=== PATIENT | female | born 2000 | race Caucasian/White ===

== ENCOUNTER 2018-04-06 12:53 | Emergency (ER) | payer MEDICAID, OTHER ==
--- OUTSIDE RECORDS SUMMARY | 2018-04-06 12:59 | XMS REPORT ---
:2000 External Reference #:[id number] Author Organization [facility] Address [address] [place] [address] Phone [phone] Care Team Providers Name Role Phone Shashi Gandara MD Primary Care Physician Unavailable Payers Type Date Identification Numbers Payment Provider Subscriber Commercial Effective: Policy Number: [id number] [employer] Judith Malik 2013 Medicaid PayID: [id number] [address] [id number] [place] [address] Problems Description No Information Family History Date Family Member(s) Problem(s) Comments General Non Contributory Father No Current Problems Mother Fibromyalgia Mother Rheumatoid Arthritis Mother Osteoporosis Social History Type Date Description Comments Marital Status Single Lives With Family Occupation Student ETOH Use Denies alcohol use rare social Smoking Patient has never smoked Recreational Drug Use Sporadically uses Marijuana Exercise Type/Frequency Exercises regularly wt lifting Allergies, Adverse Reactions, Alerts Date Description Reaction Status Severity Comments 03/10/2014 NKDA active Medications Medication Date Status Form Strength Qnty SIG Indications Ordering Provider Ibuprofen Active Capsules 200mg as needed Unknown 00 No Active 03/10/20 Hx Unknown Medications 14 - 05/27/20 14 Vital Signs Date Vital Result Comment 03/10/2018 Height 63 inches 5'3" Weight 138.00 lb BP Systolic 115 mmHg BP Diastolic 65 mmHg Body Temperature 98.0 F BMI (Body Mass Index) 24.4 kg/m2 Height Percentile 31 % Weight Percentile 67th 05/27/2014 Height 63 inches 5'3" Weight 120.00 lb Heart Rate 69 /min BMI (Body Mass Index) 21.3 kg/m2 Height Percentile 36 % Weight Percentile 55th 03/29/2014 Height 63 inches 5'3" Weight 119.00 lb Heart Rate 69 /min BP Systolic 111 mmHg BP Diastolic 72 mmHg BMI (Body Mass Index) 21.1 kg/m2 Blood Pressure Percentile 52 % Height Percentile 36 % Weight Percentile 53rd 03/10/2014 Height 64 inches 5'4" Weight 119.00 lb Heart Rate 60 /min BP Systolic 118 mmHg BP Diastolic 60 mmHg BMI (Body Mass Index) 20.4 kg/m2 Blood Pressure Percentile 74 % Height Percentile 51 % Weight Percentile 54th Results Description No Information Procedures Date CPT Code Description Status 03/17/2014 38480 Rad Exam; Foot Comp Completed 03/10/2014 31354 Rad Exam; Ankle Comp Completed Encounters Type Date Location Provider CPT E/M Dx Office Visit 05/27/2014 3:45p [facility] M.D. 37991 845.00 [facility] Office Visit 03/29/2014 1:45p [facility] M.D. 58735 845.00 [facility] Office Visit 03/17/2014 9:15a [facility] M.D. 93926 845.00 [facility] Office Visit 03/10/2014 1:30p [facility] M.D. 45801 845.00 C.[facility] Plan of Care 03/10/2018 - Phyllis Samano NPL60.0 Ingrowing nailComments:[facility] to discuss optionsReferral: Susan Araujo MD, Surgery,GeneralFollow up:Please have pt sign for old records
[2018-04-06 13:06] VITALS: BP 113/65
--- NOTE | 2018-04-06 13:16 | UC ---
Abdominal Pain Female HPI - HPI Summary HPI Summary: Patient presents with complaints of pelvic pain, and lower back pain with associated dysuria, and hematuria. She states this morning she decloped chills and urinary urgency and frequency. She states these symptoms are like when she had a urinary tract infection. She states her LMP was 4 days ago, she is on Depo. She denies any abnormal vaginal discharge or bleeding, and states she is sure the bleeding came from the bladder. - History of Current Complaint Chief Complaint: UCGU Stated Complaint: BURNING URINATION Time Seen by Provider: 04/06/18 13:02 Hx Obtained From: Patient Hx Last Menstrual Period: 07/02/2016 Onset/Duration: Sudden Onset, Lasting Days Timing: Constant Severity Initially: Mild Severity Currently: Moderate Pain Intensity: 8 Location: Suprapubic Radiates to: Back, Flank Character: Cramping Aggravating Factor(s): Other: - urination Alleviating Factor(s): Spontaneous Resolution Associated Signs and Symptoms: Positive: Negative - Risk Factors Ectopic Risk Factor: Negative Ovarian Torsion Risk Factor: Negative Allergies/Adverse Reactions: Allergies Allergy/AdvReac Type Severity Reaction Status Date / Time No Known Allergies Allergy Verified 04/06/18 13:06 Home Medications: Home Medications Pumpkin Seed Extract/Soy Germ [Azo Bladder Control Capsule] 300 mg PO DAILY PRN 04/06/18 [History Confirmed 04/06/18] PMH/Surg Hx/FS Hx/Imm Hx Previously Healthy: Yes - Surgical History Surgical History: Yes Surgery Procedure, Year, and Place: bilat cataract surgery at age 10, bilateral lens implants - Family History Known Family History: Positive: None, Other - mother has history of UTI's and pyelonephritis. - Social History Occupation: Employed Full-time Lives: Alone Alcohol Use: None Substance Use Type: None Smoking Status (MU): Never Smoked Tobacco Type: Cigarettes - Immunization History Most Recent Influenza Vaccination: 2014 Most Recent Tetanus Shot: up to date Most Recent Pneumonia Vaccination: never Vaccination Up to Date: Yes Review of Systems Constitutional: Chills Skin: Negative Eyes: Negative ENT: Negative Respiratory: Negative Cardiovascular: Negative Gastrointestinal: Negative, Abdominal Pain Genitourinary: Negative, Dysuria, Hematuria, Frequency, Urgency Motor: Negative Neurovascular: Negative Musculoskeletal: Negative Neurological: Negative Psychological: Negative Is Patient Immunocompromised?: No All Other Systems Reviewed And Are Negative: Yes Physical Exam Triage Information Reviewed: Yes Appearance: Well-Appearing Vital Signs: Initial Vital Signs Temp 97.7 F 04/06/18 13:01 Pulse 68 04/06/18 13:01 Resp 18 04/06/18 13:01 BP 113/65 04/06/18 13:01 Pulse Ox 100 04/06/18 13:01 Vital Signs Reviewed: Yes Eye Exam: Normal ENT Exam: Normal Dental Exam: Normal Neck exam: Normal Neck: Positive: 1 Respiratory Exam: Normal Cardiovascular Exam: Normal Abdominal Exam: Other - mild tenderness on palpation of the suprapubic abdomen, without rebound guarding, HSM or CVAT. Musculoskeletal Exam: Normal Neurological Exam: Normal Psychological: Positive: Age Appropriate Behavior Skin Exam: Normal Abd Pain Female Course/Dx - Course Course Of Treatment: Patient presents with UTI, Urine HCG was negative, and was treated with Cipro 500 mg bid x 10 days. Pyridium 200 mg one tablet by mouth three times daily for 2 days. I told the patient to increase her water consumption, and if her symtpoms do not improve within 12 hours to go the the ER , sooner if her symtpoms get worse. - Differential Dx/Diagnosis Differential Diagnosis: Urinary Tract Infection Provider Diagnoses: uti Discharge - Sign-Out/Discharge Documenting (check all that apply): Discharge/Admit/Transfer - Discharge Plan Condition: Stable Disposition: HOME Prescriptions: Ciprofloxacin TAB* [Cipro 500 MG TAB*] 500 mg PO BID #20 tab Phenazopyridine 200 mg (NF) [Pyridium 200 MG tab *] 200 mg PO TID #6 tab Patient Education Materials: Urinary Tract Infection in Women (DC) Referrals: Tristin Segura MD [Primary Care Provider] - - Billing Disposition and Condition Condition: STABLE Disposition: HOME
== END 2018-04-06 13:37 | disposition home or self-care (01) ==
LOC: UCEAST 12:53
DX: N39.0 Urinary tract infection, site not specified (principal); R31.9 Hematuria, unspecified; Z87.440 Personal history of urinary (tract) infections; Z32.02 Encounter for pregnancy test, result negative
CPT/HCPCS: 81003; 84702; 87077; 87086; 87186; 99212; G0463

== ENCOUNTER 2018-04-27 17:06 | Emergency (ER) | payer OTHER ==
[2018-04-27 17:20] VITALS: BP 115/68
--- NOTE | 2018-04-27 17:21 | ED ---
Throat Pain/Nasal Congestion - HPI Summary HPI Summary: 17year-old otherwise healthy female presents with bilateral eye discharge, redness and itching since this morning. She states that her friend had pinkeye and slept over at her house. They used the same pillow. She awoke with similar symptoms. She has had some minor allergies and sinus congestion but no sore throat, fever. She has history of bilateral congenital cataract surgery at age 10. - History of Current Complaint Time Seen by Provider: 04/27/18 17:14 Hx Obtained From: Patient - Allergies/Home Medications Allergies/Adverse Reactions: Allergies Allergy/AdvReac Type Severity Reaction Status Date / Time No Known Allergies Allergy Verified 04/27/18 17:16 Home Medications: Home Medications medroxyPROGESTERone ACETATE* [DEPO-Provera] 150 mg IM 04/27/18 [History] PMH/Surg Hx/FS Hx/Imm Hx Endocrine/Hematology History: Denies: Hx Diabetes, Hx Thyroid Disease Cardiovascular History: Denies: Hx Hypertension Respiratory History: Denies: Hx Asthma, Hx Chronic Obstructive Pulmonary Disease (COPD) GI History: Denies: Hx Ulcer Sensory History: Reports: Hx Cataracts - Surgical History Surgery Procedure, Year, and Place: bilat cataract surgery at age 10, bilateral lens implants Infectious Disease History: Denies: Hx Clostridium Difficile, Hx Hepatitis, Hx Human Immunodeficiency Virus (HIV), Hx of Known/Suspected MRSA, Hx Shingles, Hx Tuberculosis, Hx Known/ Suspected VRE, Hx Known/Suspected VRSA, History Other Infectious Disease, Traveled Outside the [place] in Last 30 Days - Family History Known Family History: Positive: None, Other - mother has history of UTI's and pyelonephritis. - Social History Alcohol Use: None Substance Use Type: Reports: None Smoking Status (MU): Never Smoked Tobacco Type: Cigarettes Review of Systems Negative: Fever, Chills Positive: Drainage, Erythema. Negative: Photophobia, Blurred Vision, Diplopia Positive: Nasal Discharge. Negative: Sore Throat Negative: Cough All Other Systems Reviewed And Are Negative: Yes Physical Exam Triage Information Reviewed: Yes Vital Signs Reviewed: Yes Appearance: Positive: Well-Appearing, No Pain Distress Skin: Positive: Warm, Dry Head/Face: Positive: Normal Head/Face Inspection Eyes: Positive: EOMI, JAY, Conjunctiva Inflammed, Discharge - Light yellow ENT: Positive: Nasal congestion Respiratory/Lung Sounds: Positive: Clear to Auscultation Cardiovascular: Positive: RRR Psychiatric: Positive: Normal, Affect/Mood Appropriate EENT Course/Dx - Course Course Of Treatment: Patient with likely viral conjunctivitis bilaterally. Mild injection and minimal drainage. Treat with topical drops. - Diagnoses Provider Diagnoses: Acute conjunctivitis, bilateral Discharge - Sign-Out/Discharge Documenting (check all that apply): Discharge/Admit/Transfer - Discharge Plan Condition: Good Disposition: HOME Prescriptions: Polymyx/Trimethoprim OPTH* [Polytrim OPHTH*] 1 drop BOTH EYES Q3H 4 Days #1 btl Patient Education Materials: Conjunctivitis (ED) Referrals: Tristin Segura MD [Primary Care Provider] - Additional Instructions: Wash your hands as this is contagious. Return with eye pain, worse, new symptoms or other concerns. - Billing Disposition and Condition Condition: GOOD Disposition: HOME
== END 2018-04-27 17:25 | disposition home or self-care (01) ==
LOC: UCEAST 17:06
DX: H10.33 Unspecified acute conjunctivitis, bilateral (principal)
CPT/HCPCS: 99202; G0463

== ENCOUNTER 2018-07-02 21:02 | Emergency (ER) | payer OTHER ==
[2018-07-02] MEDS ORDERED: Ibuprofen TAB* 600 MG PO ONE (22:10)
[2018-07-02] MEDS ORDERED: Ibuprofen TAB* 600 MG ONE (22:11)
--- NOTE | 2018-07-02 23:08 | ED ---
Laceration/Wound HPI - HPI Summary HPI Summary: 17 female presents ER via ambulance accompanied by mother with complaints of laceration to the left wrist after punching a window just prior to arrival. Patient states she had punched window to get inside her house because she was locked out. Bleeding is well-controlled. Admits some pain in her wrist and hand however she believes it's or laceration. Tetanus is up-to-date. No other injuries or complaints. No past medical history. Has not taken any medications. Denies drug or alcohol use tonight. Denies suicidal ideation or homicidal ideation. - History of Current Complaint Stated Complaint: RT WRIST LAC Time Seen by Provider: 07/02/18 21:24 Hx Obtained From: Patient Mechanism of Injury: Sharp/Blunt Trauma - Glass Onset/Duration: Sudden Onset Alleviating: Compression Timing: Constant Onset Severity: Moderate Current Severity: Moderate Pain Intensity: 10 Pain Scale Used: 0-10 Numeric Associated Signs & Symptoms: Negative Related Hx: Dominant Hand (Right) - Allergy/Home Medications Allergies/Adverse Reactions: Allergies Allergy/AdvReac Type Severity Reaction Status Date / Time No Known Allergies Allergy Verified 04/27/18 17:16 PMH/Surg Hx/FS Hx/Imm Hx Endocrine/Hematology History: Denies: Hx Anticoagulant Therapy, Hx Blood Disorders, Hx Diabetes, Hx Thyroid Disease Cardiovascular History: Denies: Hx Hypertension Respiratory History: Denies: Hx Asthma, Hx Chronic Obstructive Pulmonary Disease (COPD) GI History: Denies: Hx Ulcer Sensory History: Reports: Hx Cataracts Opthamlomology History: Reports: Hx Cataracts - Surgical History Surgery Procedure, Year, and Place: bilat cataract surgery at age 10, bilateral lens implants - Immunization History Date of Tetanus Vaccine: up-to-date Immunizations Up to Date: Yes Infectious Disease History: No Infectious Disease History: Denies: Hx Clostridium Difficile, Hx Hepatitis, Hx Human Immunodeficiency Virus (HIV), Hx of Known/Suspected MRSA, Hx Shingles, Hx Tuberculosis, Hx Known/ Suspected VRE, Hx Known/Suspected VRSA, History Other Infectious Disease, Traveled Outside the [place] in Last 30 Days - Family History Known Family History: Positive: None, Other - mother has history of UTI's and pyelonephritis. - Social History Alcohol Use: Occasionally Substance Use Type: Reports: Marijuana Smoking Status (MU): Never Smoked Tobacco Type: Cigarettes Review of Systems Constitutional: Negative Cardiovascular: Negative Respiratory: Negative Musculoskeletal: Negative Positive: Other - laceration All Other Systems Reviewed And Are Negative: Yes Physical Exam Triage Information Reviewed: Yes Vital Signs On Initial Exam: Initial Vitals Pulse BP Pulse Ox 96 131/84 100 07/02/18 21:02 07/02/18 21:02 07/02/18 21:02 98.6F Vital Signs Reviewed: Yes Appearance: Positive: Well-Appearing, No Pain Distress, Well-Nourished Skin: Positive: Warm, Skin Color Reflects Adequate Perfusion, Dry, Other - 4 cm superficial linear laceration to the left dorsal radial forearm/wrist minimal bleeding no foreign body. Negative: Cold, Numb, Cyanosis @, Pale, Cold Injury Head/Face: Positive: Normal Head/Face Inspection Eyes: Positive: Conjunctiva Clear ENT: Positive: Hearing grossly normal, TMs normal Neck: Positive: Supple, Nontender Respiratory/Lung Sounds: Positive: Clear to Auscultation, Breath Sounds Present. Negative: Rales, Rhonchi, Wheezes Cardiovascular: Positive: Normal, RRR, Pulses are Symmetrical in both Upper and Lower Extremities. Negative: Rub, Tachycardia Musculoskeletal: Positive: Normal, Strength/ROM Intact. Negative: Limited @, Interruption @, Abnormal @, Pain @ Neurological: Positive: Normal, Sensory/Motor Intact, Alert, Oriented to Person Place, Time, NV Bundle Intact Distally, Normal Gait Procedures - Laceration/Wound Repair 1 Location: upper extremity Description: Linear Anesthesia: Local, 1.0%, Lido Length, Depth and Shape: 4 cm linear superficial epidermal layer with some exposed adipose tissue Betadine Prep?: Yes Irrigated w/ Saline (ccs): 100 Laceration/Wound Explored: clean, foreign body removed - some bigger shards of glass removed without complication Closure: Single Layer Suture Type: Prolene - 4-0 Number of Sutures: 4 Layer Closure?: No Sterile Dressing Applied?: Yes Diagnostics - Vital Signs Vital Signs Temp Pulse Resp BP Pulse Ox 07/02/18 21:09 92 97 07/02/18 21:08 98.6 F 89 20 131/84 98 07/02/18 21:02 96 131/84 100 - Laboratory Lab Statement: Any lab studies that have been ordered have been reviewed, and results considered in the medical decision making process. - Radiology left wrist/hand Xray Interpretation: No Acute Changes - No acute fracture seen. Radiology Interpretation Completed By: ED Physician - Dr. Pena and myself Laceration Repair Course/Dx - Course Course Of Treatment: X-rays obtained and negative. Negative test. Laceration was repaired without complication with 4 simple interrupted sutures. Patient tolerated procedure well. Sterile procedure was used. Keep clean and dry for 48 hours. Then apply triple antibiotic ointment. Remove stitches in 7 days. Aware worsening signs and symptoms watch out for. The patient was very anxious during visit recommended counseling to help with coping mechanisms , mother agreed. Patient denies suicidal ideation or homicidal ideation. States she just gets combative and angry at times. No other concerns at this time. Follow-up with primary care provider. - Differential Dx Differental Diagnoses: Avulsion, Fracture, Laceration - Clinical Impression Provider Diagnoses: Laceration Discharge - Sign-Out/Discharge Documenting (check all that apply): Patient Departure - Discharge Plan Condition: Good Disposition: HOME Patient Education Materials: Care For Your Stitches (ED), Laceration (ED) Referrals: [facility] [Outside] Tristin Segura MD [Primary Care Provider] - Additional Instructions: keep clean and dry for 24-48 hours. have stitches removed in 7 days. apply triple antibiotic ointment after 48 hours. keep covered for 24 hours, after you may uncover or cover, whichever is desired. any signs of infection (redness, swelling, discharge, pain) please seek medical attention as discussed 1 stitches are removed recommend applying cocoa butter to help with scarring. - Billing Disposition and Condition Condition: GOOD Disposition: Home
[2018-07-03 00:43] VITALS: BP 119/58
--- NOTE | 2018-07-03 07:12 | RAD ---
INDICATION: Left wrist pain after punching a window COMPARISON: None. TECHNIQUE: 4 views of the left hand and 3 views of the left wrist were obtained. FINDINGS: There is evidence of laceration overlying the radial aspect distal left forearm on the AP view of the wrist. The adequately corticated bones are in normal alignment. No significant focal osseous abnormality or fracture is seen. Joint spaces appear maintained. IMPRESSION: Laceration overlying the radial aspect distal left forearm without identification of radiopaque subcutaneous foreign body or bony fracture. If the patient's symptoms persist, follow-up imaging is recommended. R0
== END 2018-07-03 00:45 | disposition home or self-care (01) ==
LOC: ED 21:02
DX: S61.512A Laceration without foreign body of left wrist, initial encounter (principal); W22.8XXA Striking against or struck by other objects, initial encounter; Y93.89 Activity, other specified; Y92.008 Other place in unspecified non-institutional (private) residence as the place of occurrence of the external cause
CPT/HCPCS: 12002; 36415; 84702; 99283; A9270-GY

== ENCOUNTER 2018-07-04 17:10 | Emergency (ER) | payer OTHER ==
[2018-07-04 19:04] VITALS: BP 135/65
--- NOTE | 2018-07-04 19:27 | UC ---
Upper Extremity HPI - HPI Summary HPI Summary: states she has numbness on left thumb and skin surrounding laceration of left forearm she sustained 2 days ago. It was sutured at , she is concerned that this may mean permanent damage. Denies pain on area of laceration or discharge. She also jammed her right pinky finger today on door and came for evaluation. - History of Current Complaint Chief Complaint: UCUpperExtremity Stated Complaint: WRIST COMPLAINT Time Seen by Provider: 07/04/18 19:00 Hx Obtained From: Patient Hx Last Menstrual Period: irregular ?: No Onset/Duration: Gradual Onset, Lasting Days Severity Initially: Moderate Severity Currently: Severe Pain Intensity: 9 Character: Dull Aggravating Factor(s): Movement Alleviating Factor(s): Nothing Associated Signs And Symptoms: Positive: Numbness/Tingling - Risk Factors Non-Orthopedic Risk Factor: Negative DVT Risk Factors: Negative Septic Arthritis Risk Factor: Negative - Allergies/Home Medications Allergies/Adverse Reactions: Allergies Allergy/AdvReac Type Severity Reaction Status Date / Time No Known Allergies Allergy Verified 07/04/18 19:05 Home Medications: Home Medications Acetaminophen TAB* [Tylenol TAB*] 650 mg PO Q4H PRN 07/04/18 [History Confirmed 07/04/18] Ibuprofen TAB* [Motrin TAB* 600 MG] 600 mg PO Q8H PRN 07/04/18 [History Confirmed 07/04/18] Naproxen Sodium [Naproxen 550 mg] 550 mg PO ONCE 07/04/18 [History Confirmed 09/11] PMH/Surg Hx/FS Hx/Imm Hx Previously Healthy: Yes Other History Of: Negative For: Anticoagulant Therapy - Surgical History Surgical History: Yes Surgery Procedure, Year, and Place: bilat cataract surgery at age 10, bilateral lens implants - Family History Known Family History: Positive: None, Other - mother has history of UTI's and pyelonephritis. - Social History Alcohol Use: Occasionally Substance Use Type: Marijuana Smoking Status (MU): Never Smoked Tobacco Type: Cigarettes - Immunization History Most Recent Influenza Vaccination: 2014 Most Recent Tetanus Shot: up to date Most Recent Pneumonia Vaccination: never Vaccination Up to Date: Yes Review of Systems Constitutional: Negative Neurological: Paresthesia All Other Systems Reviewed And Are Negative: Yes Physical Exam Triage Information Reviewed: Yes Appearance: Well-Appearing, No Pain Distress, Well-Nourished Vital Signs: Initial Vital Signs Temp 99.5 F 07/04/18 18:55 Pulse 81 07/04/18 18:55 Resp 18 07/04/18 18:55 BP 135/65 07/04/18 18:55 Pulse Ox 99 07/04/18 18:55 Vital Signs Reviewed: Yes Eyes: Positive: Conjunctiva Clear ENT: Positive: Hearing grossly normal Neck: Positive: Supple, Nontender Respiratory: Positive: Chest non-tender Cardiovascular: Positive: No Murmur Musculoskeletal: Positive: Strength Intact, Edema @ - left hand, mild, Other: - unable to assess range of motion, patient is extremely anxious and starts to hyperventilate upon touch. Right 5th finger has FROM, no edema, non tender to touch, no deformity, capillary refill is brisk Neurological: Positive: Muscle Tone Normal Skin Exam: Other - linear laceration which is healing, sutures in place, no erythema or discharge Upper Extremity Course/Dx - Course Course Of Treatment: paresthesia secundary to laceration left forearm and dependant edema of left hand, instructed patient to use sling to decrease edema and dressing was applied, to return for suture revision in 5 days, cover with bacitracin otherwise. Discussed paresthesia will become better with time . Apply ice on right pinky finger - Differential Dx/Diagnosis Provider Diagnoses: Localized paresthesia on laceration area. sprain of 5th digit right hand Discharge - Sign-Out/Discharge Documenting (check all that apply): Patient Departure - Discharge Plan Condition: Stable Disposition: HOME Patient Education Materials: Paresthesia (ED), Finger Sprain (ED) Forms: *Work Release Referrals: Tristin Segura MD [Primary Care Provider] - - Billing Disposition and Condition Condition: STABLE Disposition: Home
== END 2018-07-04 19:40 | disposition home or self-care (01) ==
LOC: UCEAST 17:10
DX: R20.0 Anesthesia of skin (principal); S63.616A Unspecified sprain of right little finger, initial encounter; W23.0XXA Caught, crushed, jammed, or pinched between moving objects, initial encounter; Y93.9 Activity, unspecified; Y92.9 Unspecified place or not applicable
CPT/HCPCS: 99213; G0463

== ENCOUNTER 2018-07-17 06:16 | Day surgery (SDC) | payer OTHER ==
--- NOTE | 2018-07-11 14:14 | HP ---
PREOPERATIVE HISTORY AND PHYSICAL: DATE OF SURGERY/ADMISSION: 07/17/18 DATE OF OFFICE VISIT/ENCOUNTER: 07/10/18 ATTENDING SURGEON: Jennifer Herrera MD * (DICTATED BY ANNETTE XAVIER) PROCEDURE: Left forearm nerve repair, extensor tendon repair. CHIEF COMPLAINT: Laceration to left forearm. HISTORY OF PRESENT ILLNESS: This is a 17-year-old female who suffered injury to her left wrist on 07/02/18. She suffered a laceration on the forearm when her arm went through a window, since then she has had markedly decreased sensation on the dorsal aspect of the left hand and index finger. She was seen at [facility] and had sutures placed and was referred to Dr. Herrera for followup evaluation. She denies other injury. After evaluation by Dr. Herrera, it was recommended that she undergo surgical intervention for best outcome and she has consented to proceed with a left forearm nerve repair and extensor tendon repair. PAST MEDICAL HISTORY: Congenital cataracts. PAST SURGICAL HISTORY: Bilateral cataract removal in 2011. CURRENT MEDICATION: Ibuprofen 200 mg p.r.n. ALLERGIES: No known drug allergies. FAMILY MEDICAL HISTORY: Noncontributory. SOCIAL HISTORY: The patient is currently employed at [employer]. She denies tobacco use. She does occasionally smoke marijuana and drinks alcohol on occasion. REVIEW OF SYSTEMS: General: Negative for fevers, chills, or night sweats. Unexplained weight loss/gain. No known anesthesia problems. HEENT: Negative for headache, lightheadedness, syncopal episodes, or visual changes. Integumentary: Positive for laceration left forearm. Negative for abrasions or open wounds. Cardiothoracic: Negative for hypertension, chest pain, palpitations, or edema. Respiratory: Negative for shortness of breath with exertion, chronic cough, wheezing. GI: Negative for nausea, vomiting, diarrhea , constipation, or GERD. : Negative for nocturia, urinary frequency, urgency , history of UTIs, or kidney problems. Musculoskeletal: Positive for current complaint. Negative for chronic or intermittent back pain. No history of fractures. Neurologic: Negative for history of seizures, stroke, or poor balance. Endocrine: Negative for diabetes and thyroid issues. Hematologic: Negative for easy bruising, anemia, bleeding disorders, or history of DVT. Infectious Disease: Negative for history of MRSA, hepatitis C, or HIV. PHYSICAL EXAMINATION GENERAL: Well-developed, well-nourished 17-year-old female, in no acute distress. VITAL SIGNS: Height is 5 feet 3 inches, weight 147 pounds. Pulse rate 58, blood pressure 120/80. HEENT: Normocephalic, atraumatic. Pupils are equal, round, and reactive to light and accommodation. Extraocular movements are intact. NECK: Supple. No palpable lymph nodes. Throat is clear. PULMONARY: Lungs are clear to auscultation bilaterally. No wheezes, rales, or rhonchi. CARDIOVASCULAR: Regular rate and rhythm. S1 and S2. No murmurs, rubs, or gallops. No edema. ABDOMEN: Positive bowel sounds, soft, nontender. NEUROLOGIC: Alert and oriented x3. Cranial nerves II through XII are intact. MUSCULOSKELETAL: On exam of her left upper extremity, there is a healing laceration at the junction of the mid and distal third forearm. Sutures are in place. Skin edges are well approximated. There is no drainage, no erythema, no sign of infection. There is moderate swelling. She has markedly decreased sensation on the dorsal aspect of her hand and index finger. She can make a fist. She can fully extend her fingers. She has weakness with radial deviation. Her elbow motion is normal. IMPRESSION: Laceration of left forearm with radial sensory nerve laceration and possible laceration of her first compartment extensor tendon. PLAN: The patient is scheduled to undergo a left forearm nerve repair and extensor tendon repair with Dr. Herrera on 07/17/18. She will follow up 10 days postop for followup and suture removal. A prescription for Ultracet was e- scribed to the patient's pharmacy for postoperative pain management. ANNETTE XAVIER [id number]/[facility] #: [id number] [place]
[~2018-07-17 06:16] MED LIST: Buffered Lidocaine 0.9% SYRIN* 5 ML/SYR SYRINGE INTRADERM ONE
[2018-07-17] MEDS ORDERED: ceFAZolin 2 GM PREMIX (*) 2 GM/50 ML BAG IVPB ONE (06:26)
[2018-07-17] MEDS ORDERED: Propofol* 10 MG/ML 20 ML BTL IV PUSH ONE (06:36)
[2018-07-17] MEDS ORDERED: Lidocaine 2% PF * 5 ML VIAL ONE (06:37)
[2018-07-17] MEDS ORDERED: Midazolam* 1 MG/ML 2 ML VIAL (2 MG) ONE (06:44)
[2018-07-17] MEDS ORDERED: fentaNYL* 50 MCG/ML 2 ML VIAL (100 MCG VIAL) ONE ×2 (06:44→08:58)
[2018-07-17] MEDS ORDERED: Lidocaine 1% INJ* 10 MG/ML 30 ML SDV ONE (07:14)
[2018-07-17] MEDS ORDERED: Succinylcholine* 20 MG/ML 10 ML VIAL ONE (07:46)
[2018-07-17] MEDS ORDERED: Bupivacaine 0.25% W/EPI* 10 ML SDV ONE (07:50)
[2018-07-17] MEDS ORDERED: Acetaminophen IV 1GM/100ML * 1,000 MG/100 ML VIAL IVPB ONE (08:15)
[2018-07-17] MEDS ORDERED: Metoclopramide IV* 5 MG/ML 2 ML VIAL IV PRN (08:15)
[2018-07-17] MEDS ORDERED: Naloxone* 0.4 MG/ML 1 ML VIAL IV PRN (08:15)
[2018-07-17] MEDS ORDERED: Acetaminophen IV 1GM/100ML * 100 ML ONE (08:49)
[2018-07-17] MEDS: fentaNYL* 50 MCG/ML 2 ML VIAL (100 MCG VIAL) IV PRN ×2 (08:59→09:12)
[2018-07-17] MEDS ORDERED: oxyCODONE TAB* 5 MG TAB ONE (09:01)
[2018-07-17 09:34] VITALS: BP 119/65
--- NOTE | 2018-07-17 23:22 | OP ---
DATE OF OPERATION: 07/17/18 - [facility] DATE OF : [birth year] SURGEON: Jennifer Herrera MD BEAM PRESS OPERATOR: ANNETTE Kohli ANESTHESIA: General. PRE-OP DIAGNOSIS: Left radial sensory nerve laceration, possible extensor tendon laceration. POST-OP DIAGNOSIS: Left radial sensory nerve laceration. OPERATIVE PROCEDURE: Left radial sensory nerve repair. ESTIMATED BLOOD LOSS: Zero. TOURNIQUET TIME: Approximately 30 minutes. INDICATIONS FOR PROCEDURE: Judith is a 17-year-old female who suffered laceration of her left forearm, and since then she has marked decreased sensation in the dorsal radial aspect of her left hand. She presents for wound exploration, possible tendon repair, and nerve repair. DESCRIPTION OF PROCEDURE: The patient was brought to the operating room, was given the general anesthetic and placed in supine position on the operating table with the tourniquet around her left upper arm. The skin of her left hand and forearm was prepped and draped in the usual sterile fashion. The hand and forearm were exsanguinated and the tourniquet elevated to 250 mmHg. The sutures were removed and the wound was explored. The APL and EPB tendons were intact. The radial sensory nerve was completely lacerated. The ends of the nerve were debrided of hematoma and then reapproximated with several sutures interrupted of 9-0 nylon suture. There was no tension on the repair. Wound was copiously irrigated with saline. The skin edges were reapproximated with 4- 0 nylon suture and the wound was dressed with Xeroform, 4x4, Webril, and thumb spica splint. The patient tolerated the procedure well and was brought to the recovery room in good condition. [id number]/[facility] #: [id number] [facility]
== END 2018-07-17 09:58 | disposition home or self-care (01) ==
LOC: OR 06:16
PROVIDERS: ATTEND Orthopaedic Surgery
DX: S54.22XA Injury of radial nerve at forearm level, left arm, initial encounter (principal); W25.XXXA Contact with sharp glass, initial encounter; Y92.9 Unspecified place or not applicable
CPT/HCPCS: 81025; A9270-GY; J0330; J0690; J2250; J2704; J3010

== ENCOUNTER → 2018-08-03 01:07 | Emergency (ER) | payer OTHER ==
[2018-08-03 01:13] VITALS: BP 94/55
--- OUTSIDE RECORDS SUMMARY | 2018-08-03 01:30 | XMS REPORT ---
:2000 External Reference #:[id number] Author Organization [employer] Address [address] [place] [address] Phone [phone] Care Team Providers Name Role Phone Shashi Gandara MD Primary Care Physician Unavailable Payers Type Date Identification Numbers Payment Provider Subscriber Commercial Effective: Policy Number: [id number] Bautista[employer] Judith Cheema 2013 Medicaid PayID: [id number] [address] [address] [place] [address] Problems Description No Information Family History Date Family Member(s) Problem(s) Comments General Non Contributory Father No Current Problems Mother Fibromyalgia Mother Rheumatoid Arthritis Mother Osteoporosis Social History Type Date Description Comments Marital Status Single Lives With Family 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 every 4-6 hours as needed pain Ibuprofen 00/ Active Capsules 200mg as Unknown 0000 needed Ciprofloxacin 04/06/ Hx Tablets 500mg 1 tab by Unknown HCL 2018 - mouth 04/16/ twice a 2018 day x 10 days No Active 03/10/ Hx Unknown Medications 2013 - 2013 Vital Signs Date Vital Result Comment 07/10/2018 Height 63 inches 5'3" Weight 147.00 lb Heart Rate 58 /min BP Systolic Sitting 120 mmHg BP Diastolic Sitting 80 mmHg Body Temperature 97.8 F Pain Level 5 BMI (Body Mass Index) 26.0 kg/m2 Height Percentile 31 % Weight Percentile 77th 07/09/2018 Height 63 inches 5'3" Weight 147.38 lb Heart Rate 77 /min BP Systolic 100 mmHg BP Diastolic 62 mmHg Body Temperature 98.8 F O2 % BldC Oximetry 98 % BMI (Body Mass Index) 26.1 kg/m2 Height Percentile 31 % Weight Percentile 78th 03/10/2018 Height 63 inches 5'3" Weight 138.00 [...] Percentile 51 % Weight Percentile 54th Results Test Date Test Result H/L Range Note Laboratory test 07/02/2018 HCG 0.86 mIU/mL 1 finding Urine Culture And 04/06/2018 Urine Culture SEE RESULT BELOW 2, 3 Sensitivities Laboratory test 04/06/2018 Poc , Negative Negative 4 finding Urine Poc Urinalysis 04/06/2018 Poc Glucose, Urine Negative Negative Poc Bilirubin, Urine Negative Negative Poc Ketone, Urine Negative Negative Poc Specific [place], Urine <=1.005 Low 1.010-1.030 Poc Blood, Urine 3+ Negative Poc pH, Urine 5.0 5-9 Poc Protein, Urine 1+ Negative Poc Urobilinogen, Urine 1.0 Negative Poc Nitrite, Urine Positive Negative Poc Leukocytes, Urine 3+ Negative Poc Color, Urine Fonda 5 Poc Clarity, Urine Cloudy 6 1 <5.0 Negative 5.0 - 25.0 Indeterminate (Repeat testing recommended after 72 hours) >25.0 Positive Perimenopausal women can display HCG levels of up to 20 mIU/mL 2 [id number] SEE RESULT BELOW Name: JUDITH CHEEMA : [address]: Janki Martínez MD Acct: [id number] Unit: [id number] AGE: 17 Location: [facility] Re04/06/18 SEX: F Status: DEP ER SPEC: [id number] SJ: 04/06/18-1328 [facility] DR: Stacy Hdez NP REQ: [id number] RECD: 04/07/18 STATUS: COMP STIVENHR DR: Janki Segura III, MD _ SOURCE: URINE SPDESC: ORDERED: Urine Culture COMMENTS: [id number] Procedure Result Reported Site Urine Culture Final 04/09/18- 0759 ML Organism 1 ESCHERICHIA COLI [place] Count 1-10,000 (Few) CFU/ML 1. ESCHERICHIA COLI M.I.C. RX --------- ------ Ampicillin <=2 S Cefazolin <=4 S Cefepime <=1 S Ceftriaxone <=1 S Ciprofloxacin <=0.25 S Gentamicin <=1 S Levofloxacin <=0.12 S Meropenem <=0.25 S Nitrofurantoin <=16 S Tetracycline <=1 S Pipercillin/Tazobactam <=4 S Trimethoprim/Sulfamethoxazole <=20 S Amoxicillin/Clavulanic Acid <=2 S Aztreonam <=1 S Contact the Microbiology Department for any additional antibiotic reporting. * ML - Main Lab . END OF REPORT DEPARTMENT OF PATHOLOGY, [address] [place] [address] Daniel Lopez M.D. Director [facility] # [id number] 4 Induction Brazer: [id number] If is still suspected, please repeat test after 48 to 72 hours. 5 Substances that cause abnormal urine color (phenazopyridine, nitrofurantoin, or riboflavin) may cause false positive results. If contamination is suspected, it is recommended that a urine sample be resubmitted to the Laboratory for testing. 6 Induction Brazer: [id number] Procedures Date CPT Code Description Status 03/17/2014 87394 Rad Exam; Foot Comp Completed 03/10/2014 13257 Rad Exam; Ankle Comp Completed Encounters Type Date Location Provider CPT E/M Dx Office Visit 07/10/2018 [facility] Jennifer Herrera, 55906 S51.822D 11:15a Of [place].Erwin Schrader Office Visit 03/10/[address] [facility] Internal Medicine Phyllis Samano, 91073 L60.0 1:00p - [address] OPERATIONAL TRAINER Office Visit 05/27/2014 [facility] Cullen Quiroz M.D. 66975 845.00 3:45p [facility] Office Visit 03/29/2014 [facility] Cullen Quiroz M.D. 90169 845.00 1:45p Of [facility] Office Visit 03/17/2014 [facility] Cullen Quiroz M.D. 02523 845.00 9:15a Of [facility] Office Visit 03/10/2014 [facility] Cullen Quiroz M.D. 28503 845.00 1:30p Of [facility] Plan of Care Future Appointment(s):07/30/2018 10:15 am - Jennifer Herrera M.D. at [facility]07/11/2018 9:30 am - [facility]07/10/2018 - Jennifer Herrera M.D.S51.822D Laceration with foreign body of left forearm, subs encntrFollow up:Follow up: 9-10 days postop
--- OUTSIDE RECORDS SUMMARY | 2018-08-03 01:30 | XMS REPORT ---
:2000 External Reference #:[id number] Author Organization [employer] Address [address] [place] [address] [place] [address] Phone [phone] Care Team Providers Name Role Phone Shashi Gandara MD Primary Care Physician Unavailable Payers Type Date Identification Numbers Payment Provider Subscriber Commercial Effective: Policy Number: [id number] Baut[employer] Judith Cheema 2015 Medicaid PayID: [id number] [address] [address] [place] [address] Problems Description No Information Family History Date Family Member(s) Problem(s) Comments General Non Contributory Father No Current Problems Mother Fibromyalgia Mother Rheumatoid Arthritis Mother Osteoporosis Maternal Grandmother Breast Cancer Social History Type Date Description Comments Marital Status Single Lives With Family 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 Denies alcohol use rare social Smoking Patient has never smoked cigarettes Recreational Drug Use Sporadically uses Marijuana Exercise Type/Frequency Exercises regularly wt lifting STD's Chlamydia in past Allergies, Adverse Reactions, Alerts Date Description Reaction Status Severity Comments 03/10/2014 NKDA active Medications Medication Date Status Form Strength Qnty SIG Indications Ordering Provider [place] 07/17/ Active Tablets 5-325mg 16tabs one - Jennifer 2018 two tabs Macrina Herrera by mouth every 4-6 hours as needed pain Ibuprofen 07/17/ Active Tablets 600mg 30tabs 1 tab Jennifer2017 three HerreraMacrina contreras times a day as needed for pain Ultracet 07/10/ Active Tablets 37.5-325mg 30tabs 1 tab by Jennifer Herrera M.D. every 4-6 hours as needed pain Tramadol HCL 07/10/ Active Tablets 50mg 30tabs 1 tab by Jennifer Herrera M.D. every 4-6 hours as needed pain Ibuprofen 00/ Active Capsules 200mg as Unknown 0000 needed Ciprofloxacin 04/06/ Hx Tablets 500mg 1 tab by Unknown HCL 2018 - mouth 04/16/ twice a 2018 day x 10 days No Active 03/10/ Hx Unknown Medications 2013 - 2013 Vital Signs Date Vital Result Comment 07/31/2018 Height 63 inches 5'3" Weight 146.00 lb BP Systolic 128 mmHg BP Diastolic 80 mmHg Respiratory Rate 16 /min Body Temperature 97.8 F Pain Level 0 BMI (Body Mass Index) 25.9 kg/m2 Height Percentile 30 % Weight Percentile 76th 07/29/2018 Height 63 inches 5'3" Weight 146.38 lb Heart Rate 84 /min BP Systolic Sitting 106 mmHg BP Diastolic Sitting 63 mmHg O2 % BldC Oximetry 96 % BMI (Body Mass Index) 25.9 kg/m2 Height Percentile 30 % Weight Percentile 77th 07/24/2018 Height 63 inches 5'3" Weight 145.12 lb Heart Rate 69 /min BP Systolic Sitting 120 mmHg BP Diastolic Sitting 80 mmHg Body Temperature 98.2 F O2 % BldC Oximetry 97 % BMI (Body Mass Index) 25.7 kg/m2 Height Percentile 31 % Weight Percentile 75th 07/10/2018 Height 63 inches 5'3" Weight 147.00 [...] Test Result H/L Range Note Laboratory test 07/29/2018 Test Urine neg finding Laboratory test 07/24/2018 HCG < 0.60 mIU/mL 1 finding GC/Chlamydia 07/24/2018 Chlamydia trachomatis Negative Negative Amplified Rna Rna Neisseria gonorrhoeae (GC) Rna Negative Negative Laboratory test finding 07/02/2018 HCG 0.86 mIU/mL 2 Urine Culture And 04/06/2018 Urine Culture SEE RESULT BELOW 3, 4 Sensitivities Laboratory test finding 04/06/2018 Poc , Negative Negative 5 Urine Poc Urinalysis 04/06/2018 Poc Glucose, Urine Negative Negative Poc Bilirubin, Urine Negative Negative Poc Ketone, Urine Negative Negative Poc Specific [place], Urine <=1.005 Low 1.010-1.030 Poc Blood, Urine 3+ Negative Poc pH, Urine 5.0 5-9 Poc Protein, Urine 1+ Negative Poc Urobilinogen, Urine 1.0 Negative Poc Nitrite, Urine Positive Negative Poc Leukocytes, Urine 3+ Negative Poc Color, Urine Slope 6 Poc Clarity, Urine Cloudy 7 1 <5.0 Negative 5.0 - 25.0 Indeterminate (Repeat testing recommended after 72 hours) >25.0 Positive Perimenopausal women can display HCG levels of up to 20 mIU/mL 2 <5.0 Negative 5.0 - 25.0 Indeterminate (Repeat testing recommended after 72 hours) >25.0 Positive Perimenopausal women can display HCG levels of up to 20 mIU/mL 3 [id number] 4 SEE RESULT BELOW Name: JUDITH CHEEMA : [address]: Janki Martínez MD Acct: [id number] Unit: [id number] AGE: 17 Location: [facility] Re04/06/18 SEX: F Status: DEP ER SPEC: [id number] SJ: 04/06/18-1328 [facility] DR: Stacy Hdez NP REQ: [id number] RECD: 04/07/18 STATUS: OFELIA ARAUJO DR: Janki Segura III, MD _ SOURCE: URINE SPDESC: ORDERED: Urine Culture COMMENTS: [id number] Procedure Result Reported Site Urine Culture Final 04/09/18- 0759 ML Organism 1 ESCHERICHIA COLI [place] Count 1-10,000 (Few) CFU/ML 1. ESCHERICHIA COLI [...] . END OF REPORT DEPARTMENT OF PATHOLOGY, [address] [place] [address] Daniel Lopez M.D. Director [facility] # [id number] 5 Double End Sewer: [id number] If is still suspected, please repeat test after 48 to 72 hours. 6 Substances that cause abnormal urine color (phenazopyridine, nitrofurantoin, or riboflavin) may cause false positive results. If contamination is suspected, it is recommended that a urine sample be resubmitted to the Laboratory for testing. 7 Double End Sewer: [id number] Procedures Date CPT Code Description Status 07/29/2018 78380 Insert Intrauterine Device Completed 03/17/2014 07519 Rad Exam; Foot Comp Completed 03/10/2014 03763 Rad Exam; Ankle Comp Completed Encounters Type Date Location Provider CPT E/M Dx Office Visit 07/10/2018 [facility] Jennifer Herrera, 25693 U22.200Y 11:15a Of C.M.ASarah Schrader Office Visit 07/09/2018 [facility] Internal Medicine Rocio Martínez, 86226 X85.808C 2:30p - [address] RPA-C I11.432Z Office Visit 03/10/2018 1:00p [facility] Internal Medicine Phyllis Samano, CUSTOM BIKE BUILDER [address] L60.0 - [address] Office Visit 05/27/2014 3:45p [facility] Cullen Quiroz M.D. 97240 845.00 Of [facility] Office Visit 03/29/2014 1:45p [facility] Cullen Quiroz M.D. 51944 845.00 Of [facility]. Office Visit 03/17/2014 9:15a [facility] Cullen Quiroz M.D. 13320 845.00 Of C.[facility]. Office Visit 03/10/2014 1:30p [facility] Cullen Quiroz M.D. 59104 845.00 Of C.[facility]. Plan of Care Future Appointment(s):08/21/2018 2:30 pm - Jennifer Herrera M.D. at [facility]09/11/2018 1:30 pm - Su[facility]ail Carpenter [facility]07/31/2018 - Chelsy Jaramillo, [facility]-CS51.812D Laceration without foreign body of left forearm, subs encntrFollow up:Follow up: 3 weeks
== END | disposition left against medical advice (07) ==
LOC: ED 01:07
DX: R10.9 Unspecified abdominal pain (principal); Z53.21 Procedure and treatment not carried out due to patient leaving prior to being seen by health care provider

== ENCOUNTER 2019-06-01 20:14 | Emergency (ER) | payer OTHER ==
[2019-06-01 21:18] VITALS: BP 112/60
--- NOTE | 2019-06-01 21:50 | UC ---
Complaint Female HPI - HPI Summary HPI Summary: pt is c/o a white-itchy vaginal discharge for about 2-3 days. she has had yeast infections which are similar symptoms. she is also c/o some pelvic aching and would like std testing. she denies urinary frequency, urgency and burning. when asked if she has a new partner, pt replied "I'm not comfortable talking about that with you". "I'm use to talking about that with my gyno". - History Of Current Complaint Chief Complaint: UCGeneralIllness Stated Complaint: PERSONAL Time Seen by Provider: 06/01/19 21:35 Hx Obtained From: Patient Hx Last Menstrual Period: kyleena Pain Intensity: 4 Associated Signs And Symptoms: Negative: Fever - Allergies/Home Medications Allergies/Adverse Reactions: Allergies Allergy/AdvReac Type Severity Reaction Status Date / Time No Known Allergies Allergy Verified 06/01/19 21:14 PMH/Surg Hx/FS Hx/Imm Hx - Additional Past Medical History Additional PMH: STI X 1 AND YEAST VAGINITIS Other History Of: Negative For: Anticoagulant Therapy - Surgical History Surgical History: Yes Surgery Procedure, Year, and Place: bilat cataract surgery at age 10, bilateral lens implants. L wrist surgery - Family History Known Family History: Positive: None, Other - mother has history of UTI's and pyelonephritis. - Social History Alcohol Use: Occasionally Substance Use Type: None Substance Use Comment - Amount & Last Used: OCCASIONALLY Smoking Status (MU): Never Smoked Tobacco Type: Cigarettes - Immunization History Most Recent Influenza Vaccination: 2014 Most Recent Tetanus Shot: unknown Most Recent Pneumonia Vaccination: never Hx Tetanus, Diphtheria Vaccination: Yes Vaccination Up to Date: Yes Review of Systems All Other Systems Reviewed And Are Negative: Yes Constitutional: Negative: Fever, Chills Gastrointestinal: Negative: Abdominal Pain Genitourinary: Positive: Vaginal/Penile Itching, Vaginal/Penile Discharge. Negative: Dysuria, Hematuria, Frequency, Urgency Physical Exam Triage Information Reviewed: Yes Appearance: Well-Appearing Vital Signs: Initial Vital Signs Temp 97.8 F 06/01/19 21:15 Pulse 55 06/01/19 21:15 Resp 12 06/01/19 21:15 BP 112/60 06/01/19 21:15 Pulse Ox 100 06/01/19 21:15 Vital Signs Reviewed: Yes Eyes: Positive: Conjunctiva Clear ENT: Positive: Normal ENT inspection Neck: Positive: Supple Respiratory: Positive: Lungs clear, Normal breath sounds Cardiovascular: Positive: RRR, No Murmur Abdomen Description: Positive: Nontender, No Organomegaly, Soft. Negative: CVA Tenderness (R), CVA Tenderness (L), Distended, Guarding Bowel Sounds: Positive: Present Pelvic Exam: Positive: Other - No external lesions. Vagina has a thick-white material. Os closed. No cervical inflammation. Cultures obtained. No CMT or uterine/adnexal tenderness. Musculoskeletal: Positive: ROM Intact Neurological: Positive: Alert Psychological: Positive: Age Appropriate Behavior Skin Exam: Normal Complaint Female Dx - Differential Dx/Diagnosis Differential Diagnosis/HQI/PQRI: Other - no concern for PID, hcg=negative, exam c/w yeats vaginitis and other cultures are pending. Provider Diagnosis: Vaginitis Discharge - Sign-Out/Discharge Documenting (check all that apply): Patient Departure All imaging exams completed and their final reports reviewed: No Studies - Discharge Plan Condition: Stable Disposition: HOME Prescriptions: Fluconazole 150 MG TAB* [Diflucan 150 MG TAB*] 150 mg PO UC ONCE #1 tablet Patient Education Materials: Vaginitis (ED) Referrals: Tristin Segura MD [Primary Care Provider] - Additional Instructions: FOLLOW UP IF NOT BETTER IN 3-5 DAYS OR SOONER IF WORSE. - Billing Disposition and Condition Condition: STABLE Disposition: Home
--- NOTE | 2019-06-03 07:32 | UC ---
- Progress Note Progress Note: vaginal culture + Gardnerella / BV negative Candidia will call in Flagyl 500 mg bid x 7 days Course/Dx - Diagnoses Provider Diagnoses: Vaginitis Discharge - Sign-Out/Discharge Documenting (check all that apply): Patient Departure All imaging exams completed and their final reports reviewed: No Studies - Discharge Plan Condition: Stable Disposition: HOME Prescriptions: Fluconazole 150 MG TAB* [Diflucan 150 MG TAB*] 150 mg PO UC ONCE #1 tablet metroNIDAZOLE [Flagyl] 500 mg PO BID #14 tablet Patient Education Materials: Vaginitis (ED) Referrals: Tristin Segura MD [Primary Care Provider] - Additional Instructions: FOLLOW UP IF NOT BETTER IN 3-5 DAYS OR SOONER IF WORSE. - Billing Disposition and Condition Condition: STABLE Disposition: Home
[2019-06-03 13:13] LABS: Neisseria gonorrhoeae (GC) RNA Negative (Negative)
[2019-06-03 13:33] LABS: Trichomonas vaginalis Result Negative (Negative)
== END 2019-06-01 22:07 | disposition home or self-care (01) ==
LOC: UCCORT 20:14
DX: N76.0 Acute vaginitis (principal); B96.89 Other specified bacterial agents as the cause of diseases classified elsewhere; Z32.02 Encounter for pregnancy test, result negative
CPT/HCPCS: 84702; 87480; 87491; 87510; 87591; 87661; 99212; G0463

== ENCOUNTER 2019-07-12 14:23 | Emergency (ER) | payer OTHER ==
[2019-07-12 14:38] VITALS: BP 104/59
--- NOTE | 2019-07-12 15:01 | UC ---
Throat Pain/Nasal Khang HPI - HPI Summary HPI Summary: Pt presents with c/o sudden onset of ST, body aches and fever X 2 days. - History of Current Complaint Chief Complaint: UCGeneralIllness Stated Complaint: SORE THROAT Time Seen by Provider: 07/12/19 14:34 Hx Obtained From: Patient Hx Last Menstrual Period: kyleena ?: No Onset/Duration: Sudden Onset, Lasting Days, Still Present Severity: Moderate Pain Intensity: 6 Cough: None Associated Signs & Symptoms: Positive: Dysphagia, Fever - Epiglottits Risk Factors Epiglottis Risk Factors: Sudden Onset - Allergies/Home Medications Allergies/Adverse Reactions: Allergies Allergy/AdvReac Type Severity Reaction Status Date / Time No Known Allergies Allergy Verified 07/12/19 14:38 PMH/Surg Hx/FS Hx/Imm Hx Previously Healthy: Yes Other History Of: Negative For: Anticoagulant Therapy - Surgical History Surgical History: Yes Surgery Procedure, Year, and Place: bilat cataract surgery at age 10, bilateral lens implants. L wrist surgery - Family History Known Family History: Positive: None, Other - mother has history of UTI's and pyelonephritis. - Social History Occupation: Student Lives: With Family Alcohol Use: Occasionally Substance Use Type: None Substance Use Comment - Amount & Last Used: OCCASIONALLY Smoking Status (MU): Never Smoked Tobacco Have You Smoked in the Last Year: No - Immunization History Most Recent Influenza Vaccination: 2014 Most Recent Tetanus Shot: unknown Most Recent Pneumonia Vaccination: never Hx Tetanus, Diphtheria Vaccination: Yes Vaccination Up to Date: Yes Review of Systems All Other Systems Reviewed And Are Negative: Yes Constitutional: Positive: Fever, Fatigue Skin: Positive: Negative Eyes: Positive: Negative ENT: Positive: Sore Throat Respiratory: Positive: Negative Cardiovascular: Positive: Negative Gastrointestinal: Positive: Negative Genitourinary: Positive: Negative Motor: Positive: Negative Neurovascular: Positive: Negative Musculoskeletal: Positive: Myalgia Neurological: Positive: Negative Psychological: Positive: Negative Is Patient Immunocompromised?: No Physical Exam Triage Information Reviewed: Yes Appearance: Well-Appearing Vital Signs: Initial Vital Signs Temp 97.4 F 07/12/19 14:33 Pulse 70 07/12/19 14:33 Resp 18 07/12/19 14:33 BP 104/59 07/12/19 14:33 Pulse Ox 98 07/12/19 14:33 Vital Signs Reviewed: Yes Eye Exam: Normal ENT: Positive: Tonsillar swelling, Tonsillar exudate Dental Exam: Normal Neck: Positive: Enlarged Nodes @ - left submandibular Respiratory Exam: Normal Cardiovascular Exam: Normal Musculoskeletal Exam: Normal Neurological Exam: Normal Psychological Exam: Normal Skin Exam: Normal Throat Pain/Nasal Course/Dx - Differential Dx/Diagnosis Differential Diagnosis/HQI/PQRI: Mononucleosis, Pharyngitis, Tonsillitis Provider Diagnosis: Strep throat Discharge - Sign-Out/Discharge Documenting (check all that apply): Patient Departure All imaging exams completed and their final reports reviewed: No Studies - Discharge Plan Condition: Stable Disposition: HOME Prescriptions: Penicillin VK 500 MG TAB(NF) [Penicillin VK 500 mg Tab] 500 mg PO Q8H #30 tab Patient Education Materials: Strep Throat (ED) Forms: *Work Release Referrals: Tristin Segura MD [Primary Care Provider] - If Needed - Billing Disposition and Condition Condition: STABLE Disposition: Home
== END 2019-07-12 15:08 | disposition home or self-care (01) ==
LOC: UCCORT 14:23
DX: J02.0 Streptococcal pharyngitis (principal)
CPT/HCPCS: 87651; 99212; G0463

== ENCOUNTER 2019-11-15 09:06 | Emergency (ER) | payer OTHER ==
[2019-11-15] MEDS ORDERED: Ibuprofen TAB* 200 MG PO ONE (09:15)
[2019-11-15] MEDS ORDERED: Acetaminophen TAB* 325 MG PO ONE (09:16)
--- NOTE | 2019-11-15 09:16 | UC ---
FLU HPI - HPI Summary HPI Summary: 19 yo female presents with flu-like symptoms. She tells me that over the last 3 days she has had body aches, fatigue, sore throat, cough, and sinus pain/ pressure/congestion. She has been taking vitamin C OTC with no relief. She noticed a fever last night that has persisted into this morning Tmax 102F. She did not get a flu shot this year. Mentions that she gets strep often - most recently last month and was treated and got better. Decreased appetite today. Denies SOB, chest pain, rash, dysuria, back pain. She smokes daily - History of Current Complaint Chief Complaint: UCGeneralIllness Stated Complaint: FLU LIKE SYMPTOMS Time Seen by Provider: 11/15/19 09:16 Hx Obtained From: Patient Hx Last Menstrual Period: iud Onset/Duration: Gradual Onset Severity Currently: Moderate Severity Initially: Severe Pain Intensity: 10 Pain Scale Used: 0-10 Numeric - Allergy/Home Medications Allergies/Adverse Reactions: Allergies Allergy/AdvReac Type Severity Reaction Status Date / Time No Known Allergies Allergy Verified 11/15/19 09:15 PMH/Surg Hx/FS Hx/Imm Hx - Additional Past Medical History Additional PMH: None Other History Of: Negative For: Anticoagulant Therapy - Surgical History Surgical History: Yes Surgery Procedure, Year, and Place: bilat cataract surgery at age 10, bilateral lens implants. L wrist surgery - Family History Known Family History: Positive: Other - mother has history of UTI's and pyelonephritis. - Social History Occupation: Student Lives: With Family Alcohol Use: Occasionally Substance Use Type: None Substance Use Comment - Amount & Last Used: OCCASIONALLY Smoking Status (MU): Light Every Day Tobacco Smoker Type: Cigarettes, eCigarettes Have You Smoked in the Last Year: No - Immunization History Most Recent Influenza Vaccination: 2014 Most Recent Tetanus Shot: unknown Most Recent Pneumonia Vaccination: never Hx Tetanus, Diphtheria Vaccination: Yes Vaccination Up to Date: Yes Review of Systems All Other Systems Reviewed And Are Negative: No Constitutional: Positive: Fever, Fatigue, Other - Body aches Skin: Positive: Negative Eyes: Positive: Negative ENT: Positive: Sore Throat, Nasal Discharge, Sinus Congestion, Sinus Pain/ Tenderness Respiratory: Positive: Cough Cardiovascular: Positive: Negative Gastrointestinal: Positive: Negative Neurovascular: Positive: Negative Neurological: Positive: Negative Psychological: Positive: Negative Physical Exam - Summary Physical Exam Summary: GENERAL: NAD. WDWN. SKIN: No rashes, sores, lesions, or open wounds. HEENT: Head: AT/NC Eyes: Conjunctiva clear without inflammation or discharge. Ears: Hearing grossly normal. TMs intact, no bulging, erythema, or edema. Nose: Nasal mucosa mildly swollen and erythematous with yellow/ clear discharge. NTTP max or frontal sinuses. Positive post nasal drip Throat: Posterior oropharynx moderate erythema and 2+ tonsillar enlargement. No exudates. Uvula midline. No hoarse voice or muffled voice. NECK: Supple. Mild ttp tonsilar LAD. CHEST: CTAB. No r/r/w. No accessory muscle use. Breathing comfortably and in no distress. CV: RRR.. Pulses intact. Cap refill <2seconds NEURO: Alert. PSYCH: Age appropriate behavior. Triage Information Reviewed: Yes Vital Signs: Initial Vital Signs Temp 102.3 F 11/15/19 09:11 Pulse 112 11/15/19 09:11 Resp 22 11/15/19 09:11 BP 124/67 11/15/19 09:11 Pulse Ox 100 11/15/19 09:11 Laboratory Tests 11/15/19 11/15/19 11/15/19 09:36 09:37 09:41 POC Urine Color POC Urine Clarity POC Urine pH POC Ur Specif [place] POC Urine Protein POC Ur Glucose (UA) POC Urine Ketones POC Urine Blood POC Urine Nitrite POC Urine Bilirubin POC Urine Urobilinogen POC U Leukocyte Esteras POC Ur Test Negative Influenza A (Rapid) Negative Influenza B (Rapid) Negative Group A Strep Rapid Positive A 11/15/19 09:49 POC Urine Color Yellow POC Urine Clarity Clear POC Urine pH 6.5 POC Ur Specif [place] 1.025 POC Urine Protein 1+ A POC Ur Glucose (UA) Negative POC Urine Ketones 1+ A POC Urine Blood Negative POC Urine Nitrite Negative POC Urine Bilirubin Negative POC Urine Urobilinogen 0.2 POC U Leukocyte Esteras Negative POC Ur Test Influenza A (Rapid) Influenza B (Rapid) Group A Strep Rapid Vital Signs Reviewed: Yes Flu Course/Dx - Course Course Of Treatment: POC strep positive. UA, urine preg, and POC flu negative. She is well appearing and tolerating po well. Rx for augmentin given recent use of PCN 1 month ago for strep - Differential Dx/Diagnosis Provider Diagnosis: Strep throat Discharge ED - Sign-Out/Discharge Documenting (check all that apply): Patient Departure All imaging exams completed and their final reports reviewed: No Studies - Discharge Plan Condition: Stable Disposition: HOME Prescriptions: Amoxicillin/Clavulanate TAB* [Augmentin TAB 875*] 875 mg PO BID #20 tab Ibuprofen TAB* [Motrin TAB* 600 MG] 600 mg PO Q8H PRN #30 tab PRN Reason: pain Patient Education Materials: Strep Throat (ED) Forms: *Work Release Referrals: Tristin Segura MD [Primary Care Provider] - Additional Instructions: If you develop a fever, shortness of breath, chest pain, new or worsening symptoms - please call your PCP or go to the ED immediately. Take tylenol/ibuprofen as directed for fever and discomfort Drink plenty of water - Billing Disposition and Condition Condition: STABLE Disposition: Home
[2019-11-15 09:49] LABS: Influenza A Molecular NEGATIVE (Negative); Influenza B Molecular NEGATIVE (Negative)
[2019-11-15 10:07] VITALS: BP 92/75
== END 2019-11-15 10:07 | disposition home or self-care (01) ==
LOC: UCEAST 09:06
DX: J02.0 Streptococcal pharyngitis (principal); R09.81 Nasal congestion; R09.89 Other specified symptoms and signs involving the circulatory and respiratory systems; F17.210 Nicotine dependence, cigarettes, uncomplicated; F17.290 Nicotine dependence, other tobacco product, uncomplicated
CPT/HCPCS: 81003; 84702; 87651; 99213; A9270-GY; G0463